=== PATIENT | female | born 1950 | race Caucasian/White ===

== ENCOUNTER 2018-04-14 09:49 | Inpatient (IN) | payer MEDICARE, OTHER ==
[~2018-04-14] VITALS: Ht 154.9 cm; Wt 52.6 kg
[2018-04-14 10:45] LABS: MEAN CORPUSCULAR HEMOGLOBIN 31.8 pg (27.0-34.8); MEAN CORPUSCULAR HGB CONC 33.2 g/dL (32.4-35.8); MEAN CORPUSCULAR VOLUME 95.7 fL (80-100); MEAN PLATELET VOLUME 7.7 fL (7.4-10.4); PLATELET COUNT 348 x10^3/uL (130-400); RED BLOOD COUNT 5.28 x10^6/uL (3.82-5.3); RED CELL DISTRIBUTION WIDTH 13.3 % (9.6-15.2)
[2018-04-14 10:52] LABS: ALBUMIN 3.6 g/dL (3.4-5.0); ANION GAP 8 mmol/L (5-15); CHLORIDE 109 mmol/L (98-107)
[2018-04-14 10:56] LABS: ALANINE AMINOTRANSFERASE 33 U/L (12-78); ALKALINE PHOSPHATASE 145 U/L (45-117); BILIRUBIN,TOTAL 0.6 mg/dL (0.2-1.0); CREATININE 1.12 mg/dL (0.55-1.02)
[2018-04-14 11:19] LABS: BASOPHILS # (AUTO) 0.04 x10^3/uL (0-0.1); BASOPHILS % (AUTO) 0 % (0-1); EOSINOPHILS # (AUTO) 0.05 x10^3/uL (0-0.4); EOSINOPHILS % (AUTO) 0 % (1-7); LYMPHOCYTES # (AUTO) 2.37 x10^3/uL (1-3.4); LYMPHOCYTES % (AUTO) 13 % (22-44); MD SCAN; MONOCYTES # (AUTO) 0.88 x10^3/uL (0.2-0.8); MONOCYTES % (AUTO) 5 % (2-9); NEUTROPHILS % (AUTO) 82 % (42-75)
--- NOTE | 2018-04-14 12:02 | NUR ---
TO RM 15 FROM [facility]. PT STATES SHE HAD BLOOD IN STOOL X2 WHEN USED BATHROOM WHILE AWAITING ROOM ASSIGNMENT. AT BEDSIDE
[2018-04-14] MEDS: SODIUM CHLORIDE 0.9% 1,000 ML IV ONE ×2 (12:08→12:29)
[2018-04-14] MEDS ORDERED: ONDANSETRON 2MG/ML, 2ML ONE (12:26)
[2018-04-14] MEDS ORDERED: MORPHINE SULFATE 4 MG/ML, 1ML ONE (12:26)
[2018-04-14] MEDS ORDERED: ONDANSETRON 2MG/ML, 2ML IVPush ONE (12:30)
[2018-04-14] MEDS ORDERED: SODIUM CHLORIDE 0.9% 1,000ML IVBOLUS ONE (12:30)
[2018-04-14] MEDS ORDERED: MORPHINE SULFATE 4 MG/ML, 1ML IVPush PRN (12:30)
[2018-04-14] MEDS ORDERED: SODIUM CHLORIDE FLUSH 10ML SYR IVF ONE (12:30)
--- NOTE | 2018-04-14 12:31 | NUR ---
MEDICATED PER ORDERS AND FLUIDS INFUSING
[2018-04-14] MEDS ORDERED: OMNIPAQUE 350 MG/ML, 100ML BOTTLE ONE (12:55)
--- NOTE | 2018-04-14 13:03 | NUR ---
PT STATES PAIN IMPROVED AND PRESENTS MORE COMFORTABLE
[2018-04-14] MEDS ORDERED: METRONIDAZOLE PMX 500MG/100ML 100 ML IVPB ONE (13:30)
[2018-04-14] MEDS ORDERED: CIPROFLOXACIN/PMX 400MG/200ML 100 ML IVPB ONE (13:30)
[2018-04-14] MEDS ORDERED: METRONIDAZOLE PMX 500MG/100ML 0 ML ONE (13:31)
[2018-04-14] MEDS ORDERED: CIPROFLOXACIN/PMX 400MG/200ML 200 ML ONE (13:32)
[2018-04-14] MEDS ORDERED: SODIUM CHLORIDE 0.9% 1,000 ML IV ONE (13:34)
[2018-04-14] MEDS ORDERED: SODIUM CHLORIDE FLUSH 10ML SYR IVF PRN (14:00)
--- NOTE | 2018-04-14 14:14 | NUR ---
RPT TO VALERI WILKES
[2018-04-14 14:39] VITALS: BP 99/50
[2018-04-14] MEDS ORDERED: ONDANSETRON ODT 4 MG PO PRN (16:00)
[2018-04-14] MEDS ORDERED: ONDANSETRON 2MG/ML, 2ML IVPush PRN (16:00)
[2018-04-14] MEDS ORDERED: NAPR220C2 PO (16:14)
[2018-04-14 16:25] LABS: MICROSCOPIC AUTO
[2018-04-14 16:27] LABS: CULTURE INDICATED? NO
[2018-04-14 16:34] LABS: PROTHROMBIN TIME 10.5 Seconds (9.6-11.5)
[2018-04-14] MEDS: CEFTRIAXONE PMX 1GM/50ML 50 ML IV SCH (17:31)
[2018-04-14] MEDS: SODIUM CHLORIDE 0.9% 1,000 ML IV SCH (17:31)
[2018-04-14] MEDS: METRONIDAZOLE PMX 500MG/100ML 100 ML IV SCH ×2 (18:42→23:55)
[2018-04-14] MEDS: morphine SULFATE 10 MG/ML, 1ML IVPush PRN (18:42)
[2018-04-14] MEDS: PANTOPRAZOLE 40 MG IV IVPush SCH (19:37)
[2018-04-14] MEDS: NICOTINE 14MG/24 HR PATCH.TD24 TD SCH (19:38)
[2018-04-14] MEDS: DOCUSATE 100 MG CAPSULE PO SCH (19:47)
[2018-04-14 19:53] VITALS: BP 111/62
[2018-04-15 02:23] VITALS: BP 99/58
[2018-04-15] MEDS: morphine SULFATE 10 MG/ML, 1ML IVPush PRN ×2 (02:32→08:50)
[2018-04-15] MEDS: SODIUM CHLORIDE 0.9% 1,000 ML IV SCH ×3 (03:37→22:00)
[2018-04-15 05:15] LABS: CHLORIDE 116 mmol/L (98-107)
[2018-04-15 05:23] LABS: ALANINE AMINOTRANSFERASE 22 U/L (12-78); ALBUMIN 2.5 g/dL (3.4-5.0); ALKALINE PHOSPHATASE 92 U/L (45-117); ANION GAP 4 mmol/L (5-15); BILIRUBIN,TOTAL 0.6 mg/dL (0.2-1.0); CALCIUM 7.4 mg/dL (8.5-10.1); CREATININE 0.73 mg/dL (0.55-1.02); TOTAL PROTEIN 5.6 g/dL (6.4-8.2)
[2018-04-15 05:39] LABS: BASOPHILS # (AUTO) 0.03 x10^3/uL (0-0.1); BASOPHILS % (AUTO) 0 % (0-1); EOSINOPHILS # (AUTO) 0.27 x10^3/uL (0-0.4); EOSINOPHILS % (AUTO) 2 % (1-7); LYMPHOCYTES # (AUTO) 2.81 x10^3/uL (1-3.4); LYMPHOCYTES % (AUTO) 25 % (22-44); MD NO; MEAN CORPUSCULAR HEMOGLOBIN 32.6 pg (27.0-34.8); MEAN CORPUSCULAR HGB CONC 33.7 g/dL (32.4-35.8); MEAN CORPUSCULAR VOLUME 96.6 fL (80-100); MEAN PLATELET VOLUME 7.8 fL (7.4-10.4); MONOCYTES # (AUTO) 0.84 x10^3/uL (0.2-0.8); MONOCYTES % (AUTO) 7 % (2-9); NEUTROPHILS # (AUTO) 7.35 x10^3/uL (1.8-6.8); NEUTROPHILS % (AUTO) 65 % (42-75); PLATELET COUNT 242 x10^3/uL (130-400); RED BLOOD COUNT 3.98 x10^6/uL (3.82-5.3); RED CELL DISTRIBUTION WIDTH 13.4 % (9.6-15.2)
[2018-04-15 08:00] VITALS: BP 95/57
[2018-04-15] MEDS: DOCUSATE 100 MG CAPSULE PO SCH ×2 (08:43→19:46)
[2018-04-15] MEDS: PANTOPRAZOLE 40 MG IV IVPush SCH (08:44)
[2018-04-15] MEDS: METRONIDAZOLE PMX 500MG/100ML 100 ML IV SCH ×2 (08:52→17:18)
[2018-04-15 14:00] VITALS: BP 100/57
[2018-04-15] MEDS: CEFTRIAXONE PMX 1GM/50ML 50 ML IV SCH (16:21)
[2018-04-15 19:40] VITALS: BP 103/64
[2018-04-15] MEDS: PANTOPROZOLE 40MG TABLET PO SCH (19:43)
[2018-04-15] MEDS: NICOTINE 14MG/24 HR PATCH.TD24 TD SCH (19:46)
[2018-04-15] MEDS: ACETAMINOPHEN 325 MG TABLET PO PRN (22:05)
[2018-04-16 01:12] VITALS: BP 94/53
[2018-04-16] MEDS: METRONIDAZOLE PMX 500MG/100ML 100 ML IV SCH ×2 (01:15→08:55)
[2018-04-16 05:09] LABS: ANION GAP 5 mmol/L (5-15); CALCIUM 7.6 mg/dL (8.5-10.1); CHLORIDE 117 mmol/L (98-107); CREATININE 0.69 mg/dL (0.55-1.02)
[2018-04-16 05:22] LABS: BASOPHILS # (AUTO) 0.03 x10^3/uL (0-0.1); BASOPHILS % (AUTO) 0 % (0-1); EOSINOPHILS % (AUTO) 3 % (1-7); LYMPHOCYTES # (AUTO) 2.49 x10^3/uL (1-3.4); LYMPHOCYTES % (AUTO) 30 % (22-44); MD NO; MEAN CORPUSCULAR HEMOGLOBIN 32.4 pg (27.0-34.8); MEAN CORPUSCULAR HGB CONC 33.2 g/dL (32.4-35.8); MEAN CORPUSCULAR VOLUME 97.7 fL (80-100); MEAN PLATELET VOLUME 7.9 fL (7.4-10.4); MONOCYTES # (AUTO) 0.68 x10^3/uL (0.2-0.8); MONOCYTES % (AUTO) 8 % (2-9); NEUTROPHILS # (AUTO) 4.84 x10^3/uL (1.8-6.8); NEUTROPHILS % (AUTO) 59 % (42-75); PLATELET COUNT 227 x10^3/uL (130-400); RED BLOOD COUNT 3.72 x10^6/uL (3.82-5.3); RED CELL DISTRIBUTION WIDTH 13.1 % (9.6-15.2)
[2018-04-16] MEDS: PANTOPROZOLE 40MG TABLET PO SCH (05:29)
[2018-04-16] MEDS: SODIUM CHLORIDE 0.9% 1,000 ML IV SCH (05:29)
[2018-04-16 08:23] VITALS: BP 121/71
[2018-04-16] MEDS: DOCUSATE 100 MG CAPSULE PO SCH (08:55)
[2018-04-16] MEDS ORDERED: CIPR500T3 PO (12:18)
[2018-04-16] MEDS ORDERED: METR-90 PO (12:18)
[2018-04-16] MEDS ORDERED: OMEP-110 PO (12:18)
[2018-04-16] MEDS: ACETAMINOPHEN 325 MG TABLET PO PRN (13:25)
[2018-04-16 13:54] VITALS: BP 106/69
== END 2018-04-16 14:15 | disposition home or self-care (01) | DRG 871 ==
LOC: ED 13:03 → EDIP 13:34 → 3NE 14:26 → DCLOUNGE 04-16 14:00
PROVIDERS: ADMIT Internal Medicine; ATTEND Internal Medicine
DX: A41.9 Sepsis, unspecified organism (principal); N17.0 Acute kidney failure with tubular necrosis; K57.21 Diverticulitis of large intestine with perforation and abscess with bleeding; E86.0 Dehydration; B19.20 Unspecified viral hepatitis C without hepatic coma; R74.8 Abnormal levels of other serum enzymes; D75.1 Secondary polycythemia; F12.90 Cannabis use, unspecified, uncomplicated; F17.210 Nicotine dependence, cigarettes, uncomplicated; I70.0 Atherosclerosis of aorta; K59.00 Constipation, unspecified; K80.20 Calculus of gallbladder without cholecystitis without obstruction; M85.80 Other specified disorders of bone density and structure, unspecified site; Z80.8 Family history of malignant neoplasm of other organs or systems; Z90.710 Acquired absence of both cervix and uterus
CPT/HCPCS: 36415; 74021; 74177; 80048; 80053; 81001; 83605; 83690; 85014; 85018; 85025; 85610; 99285; G0378; J0696; J0744; J2405; Q9967; C9113; J2270; J7030